=== PATIENT | male | born 1995 | race Caucasian/White ===

== ENCOUNTER 2021-03-09 07:21 | Emergency (ER) | payer BC ==
[~2021-03-09] VITALS: Ht 165.1 cm; Wt 66.7 kg
[~2021-03-09 07:21] MED LIST: AUGMENTIN 875875 MG PO; FLEXERIL5 MG PO; MOTRIN600 MG PO; TYLENOL W/CODEI1 TA2 PO
[2021-03-09] MEDS ORDERED: CLARITIN10 MG PO (08:20)
== END 2021-03-09 08:25 | disposition home or self-care (01) ==
LOC: ED 07:21
DX: L50.9 Urticaria, unspecified (principal); Z79.2 Long term (current) use of antibiotics